=== PATIENT | female | born 1985 | race Two or more races ===

== ENCOUNTER 2022-04-10 12:56 | Emergency (ER) | payer OTHER ==
[~2022-04-10] VITALS: Ht 160 cm; Wt 66.2 kg
== END 2022-04-10 16:59 | disposition home or self-care (01) ==
LOC: ER 12:56
DX: U07.1 COVID-19 (principal); R51.9 Headache, unspecified; R10.9 Unspecified abdominal pain; Z91.013 Allergy to seafood; Z88.6 Allergy status to analgesic agent